=== PATIENT | male | born 1970 | race Caucasian/White ===

== ENCOUNTER 2020-05-12 09:07 | Emergency (ER) | payer OTHER ==
[~2020-05-12 09:07] MED LIST: IBUPROFEN600 MG PO; PERCOCET 5/325 T1 EA PO
[2020-05-12] MEDS ORDERED: CYCLOBENZAPRINE10 MG PO (11:17)
[2020-07-31] MEDS ORDERED: GABAPENTIN300 MG PO (08:38)
[2020-07-31] MEDS ORDERED: ATORVASTATIN CA20 MG PO (08:39)
[2020-07-31] MEDS ORDERED: VITAMIN D31250 MCG PO (08:39)
== END 2020-05-12 11:58 | disposition home or self-care (01) ==
LOC: ER1 09:07
DX: M54.2 Cervicalgia (principal); R51.9 Headache, unspecified; F17.200 Nicotine dependence, unspecified, uncomplicated; Z79.899 Other long term (current) drug therapy
CPT/HCPCS: 70450; 72125; 99284

== ENCOUNTER → 2020-07-31 | Day surgery (SDC) | payer OTHER ==
[~2020-07-31] VITALS: Ht 185.4 cm; Wt 87.1 kg
[~2020-07-31] MED LIST changes: +ATORVASTATIN CA20 MG PO; +CYCLOBENZAPRINE10 MG PO; +GABAPENTIN300 MG PO; +VITAMIN D31250 MCG PO
== END | disposition home or self-care (01) ==
LOC: OR 07:51
DX: K63.5 Polyp of colon (principal); K62.1 Rectal polyp; E78.5 Hyperlipidemia, unspecified; N20.0 Calculus of kidney; E55.9 Vitamin D deficiency, unspecified; Z79.899 Other long term (current) drug therapy; Z20.822 Contact with and (suspected) exposure to COVID-19
CPT/HCPCS: J2704; J7030

== ENCOUNTER 2021-03-19 18:13 | Emergency (ER) | payer OTHER ==
[2021-03-19] MEDS ORDERED: CLEOCIN HCL300 MG PO (18:56)
[2021-03-19] MEDS ORDERED: IBUPROFEN600 MG PO (18:57)
== END 2021-03-19 18:59 | disposition home or self-care (01) ==
LOC: ER1 18:13
DX: K04.7 Periapical abscess without sinus (principal)
CPT/HCPCS: 99282